=== PATIENT | male | born 1955 | race Caucasian/White ===

== ENCOUNTER 2020-11-26 13:20 | Emergency (ER) | payer OTHER, MEDICARE ==
--- NOTE | 2020-11-26 13:24 | EDM.PDOC ---
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 He now presents to the emergency room with complaints of medial left knee pain and lower extremity edema for 5 days. The [facility] and is [facility] Plavix. He states that he has been taking his medication without fail. The patient moved to [place] which took 2 days in a car on November 14. He feels as if he has decreased movement of his left knee. He had been using a walker prior to the , however, now he is wheelchair-bound stating that he just cannot use the walker. The patient states that he had home physical therapy but is now waiting on the [facility] to set it up here. He states this is how his right knee felt prior to his [id number]-[id number]-[id number] amputation. Patient denies any fever, chills, headache, change in vision, syncope or near syncope. Denies any chest pain, back pain, shortness of breath or cough. Denies any abdominal pain, nausea, vomiting, diarrhea, constipation or dysuria. Has not noted any blood in urine or stool. Patient has been eating and drinking appropriately. In the emergency room the patient is hemodynamically stable with a blood pressure of 145/75 and a heart rate of 61. He is afebrile with a temperature of 97.1. Review of systems: As per history of present illness and below otherwise all systems reviewed and negative. Past medical history: As per history of present illness and as reviewed below otherwise noncontributory. Surgical history: As per history of present illness and as reviewed below otherwise noncontributory. Social history: See social history for further information Family history: As per history of present illness and as reviewed below otherwise noncontributory. Physical exam: General: Well developed and well nourished. Alert and orientated x 3. Nontoxic in appearance and in no acute distress. Vital signs are stable and have been reviewed by me. Nursing notes were reviewed. HEENT: Atraumatic, normocephalic, pupils equal and reactive bilaterally, negative for conjunctival pallor or scleral icterus, mucous membranes moist, TMs normal bilaterally, throat clear, neck supple, nontender, trachea midline. No drooling or trismus noted. No meningeal signs. No hot potato voice noted. Lungs: Clear to auscultation bilaterally. No wheezes, rales, or rhonchi. Chest nontender. Normal work of breathing, no accessory muscles used. Heart: S1S2, regular rate and rhythm without overt murmur, gallops, or rubs. No JVD. No peripheral edema Abdomen: Soft, nondistended, nontender. Normoactive bowel sounds. Negative for masses or costovertebral tenderness. Skin: Intact, warm, dry. No lesions or rashes noted. Hematologic: No petechiae or purpra. Mucosa appropriate color and normal nail bed color and refill. Extremities: Right lower extremity gqgyf-cdc-[id number] amputation. Left posterior knee with mild edema with medial knee pain. Noted 2+ edema distal lower extremity. Pedal pulse 3+. Neuro: Awake, alert, oriented. Cranial nerves II through XII unremarkable. Cerebellum unremarkable. Motor and sensory unremarkable throughout. Exam nonfocal. Psychiatric: Mood and affect are appropriate. Normal thought process. Answering questions appropriately. Notes: *This patient was seen and evaluated during the 2019 SARS-CoV-2 novel coronavirus pandemic period. Community viral transmission is ongoing at time of this encounter and the emergency department is operating under pandemic response procedures. After discussion and examination the patient is agreeable to lab work and if his D-dimer is elevated we will call an ultrasound. The patient's D-dimer is 0.98 which is elevated, so I have ordered a left lower extremity ultrasound to rule out a DVT. The patient is aware and agreeable to the plan. IMPRESSION:1. No evidence of left lower extremity deep venous thrombosis. 2. Incidental fluid density structure in the left groin. Correlate clinically. CBC unremarkable. CMP: Sodium 131, glucose 110, calcium 8.3. I spoke with the patient regarding his negative ultrasound for DVT. I examined the patient's left groin area due to the incidental fluid density structure in the left groin and found no tenderness, no discoloration, and no abnormalities of any kind. I spoke with the patient regarding the need for physical therapy of his left leg. While in bed the patient is able to straighten his leg out and has decreased edema. At present the patient states his only furniture in his apartment is a bed. I instructed the patient his need to elevate his legs several times a day and the need for him to exercise it. [facility] The patient also told me that on Sunday a thrift store will be bringing some type of furniture for him. I have talked with the patient about today's findings, in addition to providing specific details for plan of care. Reassessment at the time of disposition demonstrates that the patient is in no acute distress. The patient is stable for discharge, counseling was provided and we discussed in great detail signs and symptoms that would prompt them to return to the Emergency Department. Medication, follow up and supportive care measures were reviewed and discussed. Voices understanding and is agreeable to plan of care. Denies any further questions or concerns at this time. Diagnostics: CBC, CMP, D-dimer Impression: Left knee pain, left lower extremity edema Plan: 1. You were evaluated today on an emergent basis. Your left knee pain and left lower leg swelling was evaluated with blood work and an ultrasound to rule out an DVT. Once you were in bed your lower extremity swelling resolved. This shows that you need to elevate your leg several times a day and that you need to use your leg. Getting back into physical therapy so that you can get back to the walker or your cane is imperative. Be sure to follow-up with your primary care if your continues. 2. You can alternate Tylenol and ibuprofen as needed for pain and fever management. 3. We encourage you to follow up with your primary care provider and/or recommended specialist in the next few days for re-evaluation and further care/management. 4. If your symptoms should worsen, new symptoms develop or any of the signs and symptoms we discussed should arise please return to the emergency room or call 911 (if needed). Definitive disposition and diagnosis as appropriate pending reevaluation and review of above. Left Knee Pain Score (Numeric/FACES): 6 - Related Data Allergies Allergy/AdvReac Type Severity Reaction Status Date / Time vancomycin Allergy Unknown Rash Verified 11/26/20 14:09 ED ROS GENERAL - Review of Systems Review Of Systems: Comprehensive ROS is negative, except as noted in HPI. ED EXAM, GENERAL - Physical Exam Exam: See Below (See dictation) Course - Vital Signs Last Recorded V/S: Last Vital Signs Temp 97.1 F 11/26/20 13:30 Pulse 54 L 11/26/20 16:15 Resp 17 11/26/20 16:15 BP 126/58 L 11/26/20 16:15 Pulse Ox 95 11/26/20 16:15 - Orders/Labs/Meds Orders: Active Orders 24 hr Category Date Time Status Saline Lock Insert [OM.PC] Stat Oth 11/26/20 13:50 Ordered Labs: Laboratory Tests 11/26/20 11/26/20 11/26/20 Range/Units 14:00 14:00 14:00 WBC 8.69 (4.0-11.0) K/uL RBC 4.29 L (4.50-5.90) M/uL Hgb 14.6 (13.0-17.0) g/dL Hct 43.8 (38.0-50.0) % MCV 102.1 H (80.0-98.0) fL MCH 34.0 H (27.0-32.0) pg MCHC 33.3 (31.0-37.0) g/dL RDW Std Deviation 61.7 (28.0-62.0) fl RDW Coeff of Gaudencio 16 H (11.0-15.0) % Plt Count 228 (150-400) K/uL MPV 10.00 (7.40-12.00) fL Neut % (Auto) 69.2 (48.0-80.0) % Lymph % (Auto) 17.4 (16.0-40.0) % [place] % (Auto) 9.3 (0.0-15.0) % Eos % (Auto) 3.5 (0.0-7.0) % Baso % (Auto) 0.6 (0.0-1.5) % Neut # (Auto) 6.0 H (1.4-5.7) K/uL Lymph # (Auto) 1.5 (0.6-2.4) K/uL [place] # (Auto) 0.8 (0.0-0.8) K/uL Eos # (Auto) 0.3 (0.0-0.7) K/uL Baso # (Auto) 0.1 (0.0-0.1) K/uL Nucleated RBC % 0.0 /100WBC Nucleated RBCs # 0 K/uL D-Dimer, Quantitative 0.98 H (0.0-0.50) mg/L FEU Sodium 131 L (136-148) mmol/L Potassium 5.0 (3.5-5.1) mmol/L Chloride 100 (98-107) mmol/L Carbon Dioxide 25.7 (21.0-32.0) mmol/L BUN 12 (7.0-18.0) mg/dL Creatinine 1.3 (0.8-1.3) mg/dL Est Cr Clr Drug Dosing 53.40 mL/min Estimated GFR (MDRD) 55.6 ml/min Glucose 110 H (74-106) mg/dL Calcium 8.3 L (8.5-10.1) mg/dL Total Bilirubin 0.2 (0.2-1.0) mg/dL AST 20 (15-37) IU/L ALT 16 (14-63) IU/L Alkaline Phosphatase 156 H (46-116) U/L Total Protein 8.0 (6.4-8.2) g/dL Albumin 3.1 L (3.4-5.0) g/dL Globulin 4.9 H (2.6-4.0) g/dL Albumin/Globulin Ratio 0.6 L (0.9-1.6) Meds: Medications Discontinued Medications Generic Name Dose Route Start Last Admin Trade Name Freq PRN Reason Stop Dose Admin Potassium Chloride 20 meq 11/26/20 14:39 11/26/20 14:53 Potassium Chloride 20 Meq Tab.Er PO 11/26/20 14:40 20 meq ONETIME ONE Administration Sodium Chloride 10 ml 11/26/20 13:50 11/26/20 14:21 Sodium Chloride 0.9% 10 Ml Syringe FLUSH 10 ml ASDIRECTED PRN Administration Keep Vein Open Sodium Chloride 2.5 ml 11/26/20 13:50 11/26/20 14:22 Sodium Chloride 0.9% 2.5 Ml Syringe FLUSH 2.5 ml ASDIRECTED PRN Administration Keep Vein Open Departure - Departure Time of Disposition: 17:00 Disposition: Home, Self-Care 01 Condition: Good Clinical Impression: Edema of lower extremity Knee pain Qualifiers: Chronicity: acute Laterality: left Qualified Code(s): M25.562 - Pain in left knee - Discharge Information *PRESCRIPTION DRUG MONITORING PROGRAM REVIEWED*: Not Applicable *COPY OF PRESCRIPTION DRUG MONITORING REPORT IN PATIENT LISANDRA: Not Applicable Instructions: Acute Knee Pain, Adult, Edema Referrals: [facility] [employer]IAN [Primary Care Provider] - Forms: ED Department Discharge Additional Instructions: The following information is given to patients seen in the emergency department who are being discharged to home. This information is to outline your options for follow-up care. We provide all patients seen in our emergency department with a follow-up referral. The need for follow-up, as well as the timing and circumstances, are variable depending upon the specifics of your emergency department visit. If you don't have a primary care physician on staff, we will provide you with a referral. We always advise you to contact your personal physician following an emergency department visit to inform them of the circumstance of the visit and for follow-up with them and/or the need for any referrals to a consulting specialist. The emergency department will also refer you to a specialist when appropriate. This referral assures that you have the opportunity for follow-up care with a specialist. All of these measure are taken in an effort to provide you with optimal care, which includes your follow-up. Under all circumstances we always encourage you to contact your private physician who remains a resource for coordinating your care. When calling for follow-up care, please make the office aware that this follow-up is from your recent emergency room visit. If for any reason you are refused follow-up, please contact the [facility] Emergency Department at and asked to speak to the emergency department charge nurse. [facility] [address] [place] [address] [id number] [address] [address] Plan: 1. You were evaluated today on an emergent basis. Your left knee pain and left lower leg swelling was evaluated with blood work and an ultrasound to rule out an DVT. Once you were in bed your lower extremity swelling resolved. This shows that you need to elevate your leg several times a day and that you need to use your leg. Getting back into physical therapy so that you can get back to the walker or your cane is imperative. Be sure to follow-up with your primary care if your continues. 2. You can alternate Tylenol and ibuprofen as needed for pain and fever management. 3. We encourage you to follow up with your primary care provider and/or recommended specialist in the next few days for re-evaluation and further care/management. 4. If your symptoms should worsen, new symptoms develop or any of the signs and symptoms we discussed should arise please return to the emergency room or call 911 (if needed). Sepsis Event Note (ED) - Focused Exam Vital Signs: Vital Signs Temp Pulse Resp BP Pulse Ox 11/26/20 16:15 54 L 17 126/58 L 95 11/26/20 15:45 52 L 17 137/58 L 95 11/26/20 14:56 58 L 17 133/61 96 11/26/20 13:30 97.1 F 61 20 148/75 H 98 - My Orders Last 24 Hours: My Active Orders 11/26/20 13:50 Saline Lock Insert [OM.PC] Stat - Assessment/Plan Last 24 Hours: My Active Orders 11/26/20 13:50 Saline Lock Insert [OM.PC] Stat
[2020-11-26] MEDS ORDERED: Sodium Chloride 0.9% 10 ML Syringe FLUSH PRN (13:50)
[2020-11-26] MEDS ORDERED: Sodium Chloride 0.9% 2.5 ML Syringe FLUSH PRN (13:50)
[2020-11-26 14:33] LABS: CARBON DIOXIDE,CO2 25.7 mmol/L (21.0-32.0)
[2020-11-26] MEDS ORDERED: Potassium Chloride 20 MEQ Tab.ER PO ONE (14:39)
--- NOTE | 2020-11-26 16:43 | US ---
INDICATION: Knee pain and leg swelling, history of DVT COMPARISON: None TECHNIQUE: A compression venous ultrasound exam was performed of the left lower extremity using rodriguez-scale imaging, color Doppler and spectral Doppler analysis. FINDINGS: The common femoral vein, superficial femoral vein, popliteal vein, posterior tibial vein, and peroneal vein are compressible and demonstrate normal phasic flow with augmentation. A 2.8 x 1.5 x 3.8 cm fluid density structure is noted in the left groin. IMPRESSION: 1. No evidence of left lower extremity deep venous thrombosis. 2. Incidental fluid density structure in the left groin. Correlate clinically. Dictated by Jose J Don MD @ 11/26/2020 4:41:[address] Jose J Don @ Nov 26 2020 4:41PM
== END 2020-11-26 17:16 | disposition home or self-care (01) ==
LOC: MW.ED 13:20
DX: R60.0 Localized edema (principal); M25.562 Pain in left knee; Z88.1 Allergy status to other antibiotic agents
CPT/HCPCS: 36415; 80053; 85025; 85379; 93971; 99284; A9270; 99283

== ENCOUNTER 2021-09-21 16:09 | Observation (INO) | payer OTHER, MEDICARE ==
[2021-09-21 17:29] LABS: BLOOD UREA NITROGEN,BUN 6 mg/dL (7.0-18.0); CARBON DIOXIDE,CO2 24.8 mmol/L (21.0-32.0); CHLORIDE,CL 104 mmol/L (98-107); GLUCOSE RANDOM 90 mg/dL (74-106); POTASSIUM,K 4.9 mmol/L (3.5-5.1); SODIUM,NA 138 mmol/L (136-148)
[2021-09-21] MEDS ORDERED: Cephalexin 500 MG Cap PO ONE (17:52)
[2021-09-21 18:54] LABS: CORONAVIRUS COVID-19 NAA NEGATIVE (NEGATIVE); INFLUENZA A NAA NEGATIVE (NEGATIVE); INFLUENZA B NAA NEGATIVE (NEGATIVE)
[2021-09-21] MEDS ORDERED: Furosemide 40 MG/4 ML VIAL IVPUSH ONE (19:04)
[2021-09-21] MEDS ORDERED: Albuterol/Ipratropium 3.0-0.5 MG/3 ML Neb Soln NEB PRN (19:41)
[2021-09-21] MEDS ORDERED: Ondansetron 4 MG/2 ML SDV IVPUSH PRN (19:41)
[2021-09-21] MEDS ORDERED: Enoxaparin 40 MG/0.4 ML Syringe SUBCUT SCH (19:45)
[2021-09-21] MEDS ORDERED: cefTRIAXone 1 GM in Sodium Chloride 0.9% 50 ML IV SCH (21:30)
[2021-09-21] MEDS ORDERED: oxyCODONE 5 MG Tab PO PRN (22:48)
[2021-09-21] MEDS ORDERED: GABAPENTIN 300 MG PO SCH (23:00)
[2021-09-21] MEDS ORDERED: amLODIPine 5 MG Tab PO SCH (23:00)
[2021-09-21] MEDS ORDERED: Azithromycin 250 MG Tab PO SCH (23:15)
[2021-09-21] MEDS: Clopidogrel 75 MG Tab PO SCH (23:24)
[2021-09-21] MEDS: FLUoxetine 20 MG Cap PO SCH (23:25)
[2021-09-22] MEDS ORDERED: Iopamidol 755 MG/ML 500 ML Multipack Bottle IVPUSH STA (00:24)
[2021-09-22] MEDS ORDERED: cefTRIAXone 1 GM in Sodium Chloride 0.9% 50 ML IV SCH (01:00)
[2021-09-22] MEDS ORDERED: Enoxaparin 40 MG/0.4 ML Syringe SUBCUT SCH (01:00)
[2021-09-22] MEDS ORDERED: Loperamide 2 MG Cap PO ONE (02:39)
[2021-09-22 06:24] LABS: CARBON DIOXIDE,CO2 27.6 mmol/L (21.0-32.0); POTASSIUM,K 3.9 mmol/L (3.5-5.1)
[2021-09-22] MEDS ORDERED: oxyCODONE 5 MG Tab PO PRN (07:00)
[2021-09-22] MEDS ORDERED: Magnesium Sulfate/Water 2 GM in Premix Bag 1 BAG IV ONE (07:53)
[2021-09-22] MEDS: Clopidogrel 75 MG Tab PO SCH (08:24)
[2021-09-22] MEDS: FLUoxetine 20 MG Cap PO SCH (08:24)
[2021-09-22] MEDS ORDERED: Furosemide 40 MG/4 ML VIAL IVPUSH SCH (09:00)
[2021-09-22] MEDS ORDERED: Gabapentin 100 MG Cap PO SCH (10:00)
[2021-09-22] MEDS ORDERED: traZODone 50 MG Tab PO SCH (21:00)
[2021-09-23] MEDS ORDERED: FLUoxetine 20 MG Cap PO SCH (09:00)
== END 2021-09-22 12:50 | disposition home or self-care (01) ==
LOC: MW.ED 16:09 → MW.MS 18:55
PROVIDERS: ADMIT Student in an Organized Health Care Education/Training Program; ATTEND Student in an Organized Health Care Education/Training Program
DX: R60.0 Localized edema (principal); I11.0 Hypertensive heart disease with heart failure; I50.9 Heart failure, unspecified; F32.9 Major depressive disorder, single episode, unspecified; F10.10 Alcohol abuse, uncomplicated; G62.9 Polyneuropathy, unspecified; I82.409 Acute embolism and thrombosis of unspecified deep veins of unspecified lower extremity; N40.0 Benign prostatic hyperplasia without lower urinary tract symptoms; I73.9 Peripheral vascular disease, unspecified; Z88.1 Allergy status to other antibiotic agents; Z20.822 Contact with and (suspected) exposure to COVID-19; Z79.02 Long term (current) use of antithrombotics/antiplatelets; Z79.899 Other long term (current) drug therapy
CPT/HCPCS: 0240U; 36415; 71045; 73706; 80053; 80061; 81001; 83036; 83735; 83880; 84100; 84439; 84443; 84484; 85025; 85610; 93005; 93306; 93971; 96365; 96366; 96367; 96372; 96374; 96376; 99285; A9270; G0378; J0696; J1650; J1940; J3475; Q9967; 96375

== ENCOUNTER 2022-01-10 11:35 | Emergency (ER) | payer OTHER, MEDICARE ==
[2022-01-10] MEDS ORDERED: Acetaminophen/HYDROcodone 325-5 MG Tab PO ONE (11:42)
[2022-01-10 12:16] LABS: CARBON DIOXIDE,CO2 22.2 mmol/L (21.0-32.0); POTASSIUM,K 4.6 mmol/L (3.5-5.1)
[2022-01-10] MEDS ORDERED: Sodium Chloride 0.9% 1,000 ML IV SCH (12:45)
== END 2022-01-10 14:39 | disposition home or self-care (01) ==
LOC: MW.ED 11:35
DX: S22.42XA Multiple fractures of ribs, left side, initial encounter for closed fracture (principal); E86.0 Dehydration; M25.462 Effusion, left knee; I11.0 Hypertensive heart disease with heart failure; I50.9 Heart failure, unspecified; Z88.1 Allergy status to other antibiotic agents; Z95.1 Presence of aortocoronary bypass graft; Z79.02 Long term (current) use of antithrombotics/antiplatelets; W18.09XA Striking against other object with subsequent fall, initial encounter
CPT/HCPCS: 36415; 71101; 73562; 80053; 83880; 85025; 96360; 96361; 99283; A9270; J7030; 99284

== ENCOUNTER 2022-05-02 14:41 | Emergency (ER) | payer OTHER, MEDICARE ==
[2022-05-02 20:22] LABS: CARBON DIOXIDE,CO2 17.3 mmol/L (21.0-32.0); POTASSIUM,K 3.6 mmol/L (3.5-5.1)
[2022-05-02] MEDS ORDERED: Iopamidol 755 MG/ML 500 ML Multipack Bottle IVPUSH STA (21:10)
== END 2022-05-02 22:49 | disposition home or self-care (01) ==
LOC: MW.ED 14:41
DX: N40.1 Benign prostatic hyperplasia with lower urinary tract symptoms (principal); N39.0 Urinary tract infection, site not specified; M51.36 Other intervertebral disc degeneration, lumbar region; R15.9 Full incontinence of feces; K52.9 Noninfective gastroenteritis and colitis, unspecified; I10 Essential (primary) hypertension; Z95.1 Presence of aortocoronary bypass graft; Z88.1 Allergy status to other antibiotic agents
CPT/HCPCS: 36415; 72128; 72128-26; 72131-26; 74177; 74177-26; 80053; 81001; 83690; 85025; 87086; 87088; 87186; 99284; 99285

== ENCOUNTER 2022-06-07 04:56 | Inpatient (IN) | payer OTHER, MEDICARE ==
[2022-06-07] MEDS ORDERED: Acetaminophen/oxyCODONE 325-5 MG Tab PO ONE (05:25)
[2022-06-07 05:39] LABS: BLOOD UREA NITROGEN,BUN 16 mg/dL (7.0-18.0); CARBON DIOXIDE,CO2 15.1 mmol/L (21.0-32.0); CHLORIDE,CL 103 mmol/L (98-107); GLUCOSE RANDOM 148 mg/dL (74-106); POTASSIUM,K 2.7 mmol/L (3.5-5.1); SODIUM,NA 137 mmol/L (136-148)
[2022-06-07 05:41] LABS: ESTIMATED GFR 15 mL/min (>60)
[2022-06-07] MEDS ORDERED: Potassium Chloride 20 MEQ in Premix Bag 1 BAG IV ONE (05:49)
[2022-06-07] MEDS ORDERED: Sodium Chloride 0.9% 250 ML IV SCH (06:00)
[2022-06-07] MEDS ORDERED: Sodium Chloride 0.9% 500 ML IV ONE ×2 (06:09→06:10)
[2022-06-07] MEDS ORDERED: Lidocaine 1% 5 ML VIAL ONE (07:14)
[2022-06-07] MEDS ORDERED: Lidocaine 2% Viscous Solution 15 ML UD ONE (07:21)
[2022-06-07] MEDS ORDERED: Lidocaine 2% Viscous Solution 15 ML UD PO PRN (07:29)
[2022-06-07 09:37] LABS: BLOOD UREA NITROGEN,BUN 14 mg/dL (7.0-18.0); CARBON DIOXIDE,CO2 14.4 mmol/L (21.0-32.0); CHLORIDE,CL 110 mmol/L (98-107); GLUCOSE RANDOM 117 mg/dL (74-106); POTASSIUM,K 2.9 mmol/L (3.5-5.1); SODIUM,NA 137 mmol/L (136-148)
[2022-06-07 09:44] LABS: ESTIMATED GFR 18 mL/min (>60)
[2022-06-07 10:11] LABS: CORONAVIRUS COVID-19 NAA NEGATIVE (NEGATIVE); INFLUENZA A NAA NEGATIVE (NEGATIVE); INFLUENZA B NAA NEGATIVE (NEGATIVE); RESPIRATORY SYNCYTIAL VIR NAA NEGATIVE (NEGATIVE)
[2022-06-07] MEDS ORDERED: Sodium Chloride 0.9% 1,000 ML IV ONE ×2 (11:46→15:16)
[2022-06-07] MEDS ORDERED: Calcium Gluconate 10% 1 GM/10 ML SDV IVPUSH ONE (14:26)
[2022-06-07 14:33] LABS: BLOOD UREA NITROGEN,BUN 12 mg/dL (7.0-18.0); CARBON DIOXIDE,CO2 14.9 mmol/L (21.0-32.0); CHLORIDE,CL 111 mmol/L (98-107); GLUCOSE RANDOM 145 mg/dL (74-106); POTASSIUM,K 2.7 mmol/L (3.5-5.1); SODIUM,NA 136 mmol/L (136-148)
[2022-06-07 14:34] LABS: ESTIMATED GFR 19 mL/min (>60)
[2022-06-07] MEDS ORDERED: Ondansetron 4 MG/2 ML SDV IVPUSH PRN (17:18)
[2022-06-07] MEDS ORDERED: Polyethylene Glycol 3350 Powder 17 GM Packet PO PRN (17:18)
[2022-06-07] MEDS ORDERED: Enoxaparin 40 MG/0.4 ML Syringe SUBCUT SCH (17:30)
[2022-06-07] MEDS ORDERED: LORazepam 2 MG/ML SDV IVPUSH PRN (17:41)
[2022-06-07] MEDS ORDERED: Thiamine 100 MG in Sodium Chloride 0.9% 100 ML IV SCH (17:45)
[2022-06-07] MEDS ORDERED: Albuterol/Ipratropium 3.0-0.5 MG/3 ML Neb Soln NEB PRN (18:00)
[2022-06-07] MEDS: Folic Acid 1 MG/0.2 ML UD Syringe IV SCH (18:32)
[2022-06-07] MEDS: Potassium Chloride 100 ML IV SCH ×2 (18:33→21:36)
[2022-06-07] MEDS: Thiamine 200 MG/2 ML MDV IVPUSH SCH (18:33)
[2022-06-07] MEDS: Sodium Chloride 0.9% 1,000 ML IV SCH (18:33)
[2022-06-07] MEDS: Acetaminophen 325 MG Tab PO PRN (22:06)
[2022-06-08] MEDS: Sodium Chloride 0.9% 1,000 ML IV SCH ×2 (02:18→10:22)
[2022-06-08 07:12] LABS: CARBON DIOXIDE,CO2 12.6 mmol/L (21.0-32.0); POTASSIUM,K 3.3 mmol/L (3.5-5.1)
[2022-06-08] MEDS ORDERED: Potassium Chloride 20 MEQ Tab.ER PO ONE (08:11)
[2022-06-08] MEDS: Thiamine 200 MG/2 ML MDV IVPUSH SCH (08:33)
[2022-06-08] MEDS: Folic Acid 1 MG/0.2 ML UD Syringe IV SCH (08:34)
[2022-06-08] MEDS ORDERED: Heparin Sodium 5,000 Units/ML Vial SUBCUT SCH (09:00)
[2022-06-08] MEDS ORDERED: CLOBETASOL TOP PRN (10:36)
[2022-06-08] MEDS: Lactated Ringers 1,000 ML IV SCH ×2 (11:20→21:01)
[2022-06-08] MEDS: Nystatin Topical Powder 15 GM Bottle TOP SCH ×2 (11:21→21:01)
[2022-06-08] MEDS: Carbidopa/Levodopa 25-100 MG Tab PO SCH ×2 (11:22→21:02)
[2022-06-08] MEDS: FLUoxetine 20 MG Cap PO SCH (11:22)
[2022-06-08] MEDS: Tamsulosin 0.4 MG Cap.ER PO SCH (11:22)
[2022-06-08] MEDS: Clopidogrel 75 MG Tab PO SCH (11:22)
[2022-06-08] MEDS: oxyCODONE 5 MG Tab PO PRN (11:23)
[2022-06-08] MEDS: Vancomycin 125 MG Cap PO SCH ×2 (11:23→17:49)
[2022-06-08] MEDS: Gabapentin 100 MG Cap PO SCH ×2 (11:24→21:02)
[2022-06-08] MEDS: Silver Sulfadiazine 1% Crm 50 GM Tube TOP SCH ×2 (14:00→21:02)
[2022-06-08 19:37] LABS: POTASSIUM,K 3.5 mmol/L (3.5-5.1)
[2022-06-08] MEDS: traZODone 50 MG Tab PO SCH (21:02)
[2022-06-09] MEDS: Vancomycin 125 MG Cap PO SCH ×5 (00:23→23:12)
[2022-06-09] MEDS: Lactated Ringers 1,000 ML IV SCH ×3 (05:20→23:12)
[2022-06-09 06:56] LABS: CARBON DIOXIDE,CO2 14.5 mmol/L (21.0-32.0)
[2022-06-09] MEDS ORDERED: Potassium Chloride 20 MEQ Tab.ER PO ONE (07:30)
[2022-06-09] MEDS: Tamsulosin 0.4 MG Cap.ER PO SCH (08:31)
[2022-06-09] MEDS: Clopidogrel 75 MG Tab PO SCH (08:31)
[2022-06-09] MEDS: Carbidopa/Levodopa 25-100 MG Tab PO SCH ×2 (08:31→20:04)
[2022-06-09] MEDS: Gabapentin 100 MG Cap PO SCH ×2 (08:31→20:04)
[2022-06-09] MEDS: FLUoxetine 20 MG Cap PO SCH (08:31)
[2022-06-09] MEDS: Folic Acid 1 MG/0.2 ML UD Syringe IV SCH (08:32)
[2022-06-09] MEDS: Thiamine 200 MG/2 ML MDV IVPUSH SCH (08:32)
[2022-06-09] MEDS: Silver Sulfadiazine 1% Crm 50 GM Tube TOP SCH (08:51)
[2022-06-09] MEDS: Nystatin Topical Powder 15 GM Bottle TOP SCH ×2 (08:52→20:02)
[2022-06-09] MEDS: oxyCODONE 5 MG Tab PO PRN ×3 (10:14→20:08)
[2022-06-09] MEDS: Heparin Sodium 5,000 Units/ML Vial SUBCUT SCH ×2 (11:45→23:12)
[2022-06-09] MEDS: Silver Sulfadiazine 1% Crm 50 GM Tube TOP PRN (20:03)
[2022-06-09] MEDS: traZODone 50 MG Tab PO SCH (20:04)
[2022-06-10] MEDS: Vancomycin 125 MG Cap PO SCH ×4 (05:01→23:59)
[2022-06-10] MEDS: Silver Sulfadiazine 1% Crm 50 GM Tube TOP PRN (05:08)
[2022-06-10 07:35] LABS: CARBON DIOXIDE,CO2 18.9 mmol/L (21.0-32.0); POTASSIUM,K 2.9 mmol/L (3.5-5.1)
[2022-06-10] MEDS: Lactated Ringers 1,000 ML IV SCH ×3 (07:39→22:10)
[2022-06-10] MEDS: Tamsulosin 0.4 MG Cap.ER PO SCH (09:15)
[2022-06-10] MEDS: Gabapentin 100 MG Cap PO SCH ×2 (09:15→20:52)
[2022-06-10] MEDS: Carbidopa/Levodopa 25-100 MG Tab PO SCH ×2 (09:15→20:52)
[2022-06-10] MEDS: FLUoxetine 20 MG Cap PO SCH (09:15)
[2022-06-10] MEDS: Thiamine 200 MG/2 ML MDV IVPUSH SCH (09:16)
[2022-06-10] MEDS: Folic Acid 1 MG/0.2 ML UD Syringe IV SCH (09:16)
[2022-06-10] MEDS: Nystatin Topical Powder 15 GM Bottle TOP SCH ×2 (09:16→20:55)
[2022-06-10] MEDS: Clopidogrel 75 MG Tab PO SCH (09:16)
[2022-06-10] MEDS: oxyCODONE 5 MG Tab PO PRN ×4 (09:31→22:13)
[2022-06-10] MEDS ORDERED: Magnesium Sulfate/Water 4 GM in Premix Bag 1 BAG IV ONE (10:13)
[2022-06-10] MEDS ORDERED: MAGNESIUM SULFATE IV ONE ×6 (11:30)
[2022-06-10] MEDS ORDERED: WATER IV ONE ×6 (11:30)
[2022-06-10] MEDS ORDERED: DEXTROSE 5% IV ONE ×6 (11:30)
[2022-06-10] MEDS ORDERED: POTASSIUM PHOSPHATES IV ONE ×6 (11:30)
[2022-06-10] MEDS: Heparin Sodium 5,000 Units/ML Vial SUBCUT SCH ×2 (12:09→22:12)
[2022-06-10] MEDS ORDERED: Benzonatate 100 MG Cap PO PRN (12:30)
[2022-06-10] MEDS: Zinc Oxide 13% Crm 56 GM Tube TOP SCH ×3 (13:42→23:10)
[2022-06-10] MEDS: guaiFENesin 100 MG/5 ML Soln 5 ML UD Cup PO PRN ×3 (13:42→22:12)
[2022-06-10 16:37] LABS: CARBON DIOXIDE,CO2 17.9 mmol/L (21.0-32.0); POTASSIUM,K 3.4 mmol/L (3.5-5.1)
[2022-06-10] MEDS ORDERED: Calcium Gluconate 10% 1 GM/10 ML SDV IVPUSH ONE (17:15)
[2022-06-10] MEDS ORDERED: Potassium Chloride 10% 20 MEQ/15 ML Soln 30 ML UD Cup PO ONE (17:16)
[2022-06-10] MEDS: traZODone 50 MG Tab PO SCH (20:55)
[2022-06-11] MEDS: Acetaminophen 325 MG Tab PO PRN ×3 (04:00→22:26)
[2022-06-11] MEDS: Vancomycin 125 MG Cap PO SCH ×3 (05:58→17:16)
[2022-06-11] MEDS: oxyCODONE 5 MG Tab PO PRN ×3 (05:58→17:15)
[2022-06-11] MEDS: Zinc Oxide 13% Crm 56 GM Tube TOP SCH ×4 (06:01→23:23)
[2022-06-11 06:35] LABS: CARBON DIOXIDE,CO2 16.4 mmol/L (21.0-32.0); POTASSIUM,K 3.3 mmol/L (3.5-5.1)
[2022-06-11] MEDS ORDERED: Potassium Chloride 20 MEQ Tab.ER PO ONE (07:17)
[2022-06-11 07:36] LABS: BILIRUBIN INDIRECT 0.3
[2022-06-11] MEDS: FLUoxetine 20 MG Cap PO SCH (08:21)
[2022-06-11] MEDS: Tamsulosin 0.4 MG Cap.ER PO SCH (08:22)
[2022-06-11] MEDS: Gabapentin 100 MG Cap PO SCH ×2 (08:22→21:49)
[2022-06-11] MEDS: Clopidogrel 75 MG Tab PO SCH (08:22)
[2022-06-11] MEDS: Carbidopa/Levodopa 25-100 MG Tab PO SCH ×2 (08:22→21:49)
[2022-06-11] MEDS: Folic Acid 1 MG/0.2 ML UD Syringe IV SCH (08:32)
[2022-06-11] MEDS: Thiamine 200 MG/2 ML MDV IVPUSH SCH (08:32)
[2022-06-11] MEDS: Nystatin Topical Powder 15 GM Bottle TOP SCH (08:47)
[2022-06-11] MEDS ORDERED: Furosemide 40 MG/4 ML VIAL IVPUSH SCH (09:00)
[2022-06-11] MEDS: Heparin Sodium 5,000 Units/ML Vial SUBCUT SCH ×2 (11:14→23:23)
[2022-06-11] MEDS ORDERED: Furosemide 40 MG/4 ML VIAL IVPUSH ONE ×2 (17:00→21:45)
[2022-06-11] MEDS: traZODone 50 MG Tab PO SCH (21:51)
[2022-06-11 23:06] LABS: CARBON DIOXIDE,CO2 16.8 mmol/L (21.0-32.0); POTASSIUM,K 4.4 mmol/L (3.5-5.1)
[2022-06-11 23:36] LABS: CORONAVIRUS COVID-19 NAA NEGATIVE (NEGATIVE); INFLUENZA A NAA NEGATIVE (NEGATIVE); INFLUENZA B NAA NEGATIVE (NEGATIVE); RESPIRATORY SYNCYTIAL VIR NAA NEGATIVE (NEGATIVE)
[2022-06-11] MEDS ORDERED: Piperacillin/Tazobactam 4.5 GM in Sodium Chloride 0.9% 100 ML IV SCH (23:45)
[2022-06-12] MEDS ORDERED: Levofloxacin/Dextrose 5%-Water 750 MG in Premix Bag 1 BAG IV SCH ×2
[2022-06-12] MEDS: Piperacillin/Tazobactam 3.375 GM in Sodium Chloride 0.9% 50 ML IV SCH ×3 (00:10→11:32)
[2022-06-12] MEDS ORDERED: Sodium Chloride 0.9% 500 ML IV SCH (00:15)
[2022-06-12] MEDS ORDERED: Norepinephrine 4 MG in Dextrose 5% in Water 246 ML IV SCH ×2 (00:30)
[2022-06-12] MEDS ORDERED: Linezolid 600 MG in Premix Bag 1 BAG IV SCH (00:30)
[2022-06-12] MEDS: Vancomycin 125 MG Cap PO SCH ×3 (00:30→11:41)
[2022-06-12] MEDS: metroNIDAZOLE/Normal Saline 500 MG in Premix Bag 1 BAG IV SCH ×3 (00:50→11:36)
[2022-06-12] MEDS: Zinc Oxide 13% Crm 56 GM Tube TOP SCH ×2 (06:07→11:44)
[2022-06-12 06:20] LABS: CARBON DIOXIDE,CO2 18.2 mmol/L (21.0-32.0); POTASSIUM,K 3.3 mmol/L (3.5-5.1)
[2022-06-12] MEDS ORDERED: Potassium Chloride 20 MEQ Tab.ER PO ONE (08:35)
[2022-06-12] MEDS: Carbidopa/Levodopa 25-100 MG Tab PO SCH (08:57)
[2022-06-12] MEDS: Thiamine 200 MG/2 ML MDV IVPUSH SCH (08:57)
[2022-06-12] MEDS: Gabapentin 100 MG Cap PO SCH (08:57)
[2022-06-12] MEDS: Tamsulosin 0.4 MG Cap.ER PO SCH (08:57)
[2022-06-12] MEDS: Clopidogrel 75 MG Tab PO SCH (08:57)
[2022-06-12] MEDS: Folic Acid 1 MG/0.2 ML UD Syringe IV SCH (08:58)
[2022-06-12] MEDS: Heparin Sodium 5,000 Units/ML Vial SUBCUT SCH (11:30)
[2022-06-12] MEDS: oxyCODONE 5 MG Tab PO PRN (12:31)
== END 2022-06-12 12:10 | DRG 682 ==
LOC: MW.ED 04:56 → MW.MS 15:57 → MW.ICU 06-11 23:27
PROVIDERS: ADMIT Internal Medicine; ATTEND Internal Medicine
PROC: 03HB33Z Insertion of Infusion Device into Right Radial Artery, Percutaneous Approach (ICD-10-PCS; principal; 2022-06-12)
PROC: 3E033XZ Introduction of Vasopressor into Peripheral Vein, Percutaneous Approach (ICD-10-PCS; 2022-06-12)
DX: N17.9 Acute kidney failure, unspecified (principal); A41.9 Sepsis, unspecified organism; J96.01 Acute respiratory failure with hypoxia; I73.9 Peripheral vascular disease, unspecified; I50.9 Heart failure, unspecified; R65.21 Severe sepsis with septic shock; I50.33 Acute on chronic diastolic (congestive) heart failure; A04.72 Enterocolitis due to Clostridium difficile, not specified as recurrent; J90 Pleural effusion, not elsewhere classified; F10.10 Alcohol abuse, uncomplicated; Z20.822 Contact with and (suspected) exposure to COVID-19; E87.6 Hypokalemia; E83.42 Hypomagnesemia; I11.0 Hypertensive heart disease with heart failure; F32.A Depression, unspecified; N40.1 Benign prostatic hyperplasia with lower urinary tract symptoms; R32 Unspecified urinary incontinence; H91.90 Unspecified hearing loss, unspecified ear; H54.7 Unspecified visual loss; W05.0XXA Fall from non-moving wheelchair, initial encounter; G62.9 Polyneuropathy, unspecified; S09.90XA Unspecified injury of head, initial encounter; M25.551 Pain in right hip; Z88.1 Allergy status to other antibiotic agents; Z79.899 Other long term (current) drug therapy; Z86.718 Personal history of other venous thrombosis and embolism; Z79.01 Long term (current) use of anticoagulants; Z89.611 Acquired absence of right leg above knee; Z79.02 Long term (current) use of antithrombotics/antiplatelets
CPT/HCPCS: 0241U; 36415; 36600; 70450; 71045; 71250; 72125; 73502; 73560; 74176; 80048; 80053; 80076; 81001; 82803; 83605; 83735; 83880; 84100; 84484; 85025; 86140; 87040; 87324; 87493; 93005; 96361; 96365; 96366; 96375; 97163; 97530; 99285; A9270-GY; J0610; J1644; J1940; J2020; J2060; J2543; J3411; J3475; J3480; J3490; J7030; J7060; J7120